=== PATIENT | male | born 1960 | race Native Hawaiian/Other Pacific Islander ===

== ENCOUNTER 2019-04-30 15:05 | Inpatient (IN) | payer OTHER ==
[2019-04-30] MEDS ORDERED: Sodium Chloride 0.9% 1,000 ML IV STA (15:59)
[2019-04-30] MEDS ORDERED: Lactated Ringer's 1,000 ML IV SCH (16:00)
--- NOTE | 2019-04-30 16:08 | ED PDOC ---
HPI: Abdomen Time Seen by Provider: 04/30/19 15:31 Chief Complaint (Nursing): Abdominal Pain Chief Complaint (Provider): Abdominal Pain History Per: Patient History/Exam Limitations: no limitations Onset/Duration Of Symptoms: Days (5) Additional Complaint(s): 58 year old male presents to ED with LUQ pain that radiates through back x2 days. Patient was sent to ED after PMD received abnormal blood work, with unusually high Lipase level. The CT ordered by his PMD was positive for acute pancreatitis. He reports fever, loss of appetite, and diarrhea last week but denies vomiting. PMD: Rafael Moses Past Medical History Reviewed: Historical Data, Nursing Documentation, Vital Signs Vital Signs: Last Vital Signs Temp 98.7 F 04/30/19 15:23 Pulse 101 H 04/30/19 15:23 Resp 18 04/30/19 15:23 BP 113/74 04/30/19 15:23 Pulse Ox 96 04/30/19 15:23 Primary Care Provider: Rafael Moses - Medical History PMH: Denies: Anxiety, Bipolar Disorder, Depression, Diabetes, Hepatitis, HIV, HTN, Personality Disorder, Chronic Kidney Disease, Schizophrenia, Seizures, Sexually Transmitted Disease - Family History Family History: States: Unknown Family Hx - Social History Current smoker - smoking cessation education provided: No Alcohol: None Drugs: Denies - Immunization History Hx Tetanus Toxoid Vaccination: No Hx Influenza Vaccination: No Hx Pneumococcal Vaccination: No - Home Medications Home Medications: Ambulatory Orders Medication Instructions Recorded No Known Home Med 04/30/19 - Allergies Allergies/Adverse Reactions: Allergies Allergy/AdvReac Type Severity Reaction Status Date / Time No Known Allergies Allergy Unverified 04/30/19 15:24 Review of Systems ROS Statement: Except As Marked, All Systems Reviewed And Found Negative Constitutional: Positive for: Other (appetite loss) Gastrointestinal: Positive for: Abdominal Pain (LUQ), Diarrhea. Negative for: Vomiting Physical Exam - Reviewed Nursing Documentation Reviewed: Yes Vital Signs Reviewed: Yes - Physical Exam Appears: Negative for: Uncomfortable (comfortable) Head Exam: Positive for: ATRAUMATIC, NORMAL INSPECTION, NORMOCEPHALIC Skin: Positive for: Normal Color, Warm, Dry Eye Exam: Positive for: EOMI, Normal appearance, PERRL ENT: Positive for: Normal ENT Inspection Neck: Positive for: Normal, Painless ROM, Supple Cardiovascular/Chest: Positive for: Regular Rate, Rhythm, Tachycardia (mild). Negative for: Murmur Respiratory: Positive for: CNT, Normal Breath Sounds Gastrointestinal/Abdominal: Positive for: Normal Exam, Soft. Negative for: Tenderness Back: Positive for: Normal Inspection. Negative for: L CVA Tenderness, R CVA Tenderness, Vertebral Tenderness Extremity: Positive for: Normal ROM. Negative for: Pedal Edema, Deformity Neurological/Psych: Positive for: Awake, Alert, Normal Tone, Oriented (x3). Neg ative for: Motor/Sensory Deficits - Laboratory Results Result Diagrams: 04/30/19 16:15 04/30/19 16:15 - ECG O2 Sat by Pulse Oximetry: 96 (RA) Pulse Ox Interpretation: Normal Medical Decision Making Medical Decision Making: Time: 1555 Initial Impression: abdominal pain Ddx: acute pancreatitis Initial Plan: --Labs (CMP, Lipase) --Bloodwork --IV Fluids --US Gallbladder Scribe Attestation: Documented by Kapil Prater acting as a scribe for Danae Park MD. Provider Scribe Attestation: All medical record entries made by the Scribe were at my direction and personally dictated by me. I have reviewed the chart and agree that the record accurately reflects my personal performance of the history, physical exam, medical decision making, and the department course for this patient. I have also personally directed, reviewed, and agree with the discharge instructions and disposition. Disposition - Clinical Impression Clinical Impression: Acute pancreatitis - Disposition Disposition Time: 15:40 Condition: FAIR
[2019-04-30 16:23] LABS: VENOUS BLOOD GAS BASE EXCESS 2.5 mmol/L (0.0-2.0); VENOUS BLOOD GAS PCO2 45 mmHg (40-60); VENOUS BLOOD GAS PO2 36 mm/Hg (30-55)
[2019-04-30 16:25] LABS: BASO # 0.1 K/uL (0.0-0.2); BASO % 0.4 % (0.0-2.0); HEMOGLOBIN 13.4 g/dL (12.0-18.0); LYMPH # 0.7 K/uL (1.0-4.3); LYMPH % 5.7 % (20.0-40.0); MEAN CELL VOLUME 89.4 fl (80.0-94.0); MEAN CORPUSCULAR HEMOGLOBIN 30.5 pg (27.0-31.0); MEAN CORPUSCULAR HGB CONC 34.1 g/dL (33.0-37.0); MEAN PLATELET VOLUME 8.6 fl (7.2-11.7); MONO # 0.9 K/uL (0.0-0.8); MONO % 7.1 % (0.0-10.0); NEUT # 10.9 K/uL (1.8-7.0); NEUT % 86.8 % (50.0-75.0); PLATELET COUNT 206 K/uL (130-400); RBC 4.39 Mil/uL (4.40-5.90); RED CELL DISTRIBUTION WIDTH 13.2 % (11.5-14.5); WHITE BLOOD COUNT 12.6 K/uL (4.8-10.8)
[2019-04-30 16:42] LABS: ALB/GLOB RATIO 1.2 (1.0-2.1); ALBUMIN 4.1 g/dL (3.5-5.0); BLOOD UREA NITROGEN 9 mg/dl (9-20); CALCIUM 8.6 mg/dL (8.4-10.2); GFR NON-AFRICAN AMERICAN > 60; LIPASE 639 U/L (23-300)
[2019-04-30 16:48] LABS: ALT/SGPT 34 U/L (21-72); AST/SGOT 46 U/L (17-59)
[2019-04-30 18:31] LABS: BANDS 2 % (0-2); LYMPHOCYTE 8 % (20-50); MONOCYTE 7 % (0-10); NEUTROPHIL 83 % (42-75); PLATELET ESTIMATE NORMAL (NORMAL); TOTAL CELLS COUNTED 100
[2019-04-30] MEDS: Lactated Ringer's 1,000 ML IV SCH (19:01)
[2019-05-01 06:08] LABS: HEMOGLOBIN 13.1 g/dL (12.0-18.0); MEAN CELL VOLUME 90.3 fl (80.0-94.0); MEAN CORPUSCULAR HEMOGLOBIN 30.2 pg (27.0-31.0); MEAN CORPUSCULAR HGB CONC 33.5 g/dL (33.0-37.0); RBC 4.33 Mil/uL (4.40-5.90); RED CELL DISTRIBUTION WIDTH 13.6 % (11.5-14.5); WHITE BLOOD COUNT 11.9 K/uL (4.8-10.8)
[2019-05-01 06:17] LABS: ALB/GLOB RATIO 1.1 (1.0-2.1); ALBUMIN 3.8 g/dL (3.5-5.0); ALT/SGPT 31 U/L (21-72); AST/SGOT 29 U/L (17-59); BLOOD UREA NITROGEN 8 mg/dl (9-20); CALCIUM 8.5 mg/dL (8.4-10.2); GFR NON-AFRICAN AMERICAN > 60; LIPASE 500 U/L (23-300)
--- NOTE | 2019-05-01 10:56 | US ---
Date of service: 04/30/2019 HISTORY: LUQ pain pacnreatitis COMPARISON: None. TECHNIQUE: Sonographic evaluation of the right upper quadrant of the abdomen. FINDINGS: LIVER: Measures 18.1 cm in length. Patent portal and hepatic venous systems. Portal venous flow: Hepatopetal. echogenicity of the liver parenchyma. No mass. No intrahepatic bile duct dilatation. GALLBLADDER: Unremarkable. No gallstones. COMMON BILE DUCT: Measures 4.8 mm. No stones. No dilatation. PANCREAS: Obscured by overlying bowel gas. Non diagnostic assessment of the pancreas RIGHT KIDNEY: Measures 5.3 x 11.0 cm in length. Normal echogenicity. No calculus, mass, or hydronephrosis. AORTA: Not visible. IVC: Not visible. OTHER FINDINGS: None . IMPRESSION: Unremarkable liver, gallbladder, common bile duct in right kidney. Remaining abdominal/retroperitoneal structures are not visible. Concordant findings (preliminary report) provided by [employer].
[2019-05-01 12:14] LABS: SQUAMOUS EPITHIAL < 1 /hpf (0-5); URINE BILIRUBIN NEGATIVE (NEGATIVE); URINE BLOOD NEGATIVE (NEGATIVE); URINE CLARITY CLEAR (Clear); URINE COLOR YELLOW (YELLOW); URINE GLUCOSE (UA) NEG (NEGATIVE); URINE LEUKOCYTE ESTERASE NEG Leu/uL (Negative); URINE PROTEIN NEGATIVE (NEGATIVE)
[2019-05-01] MEDS: Lactated Ringer's 1,000 ML IV SCH ×5 (12:15→23:23)
[2019-05-01] MEDS ORDERED: Pantoprazole 40 mg EC Tab PO ONE (20:34)
[2019-05-01] MEDS: Simethicone 80 mg Chewtab PO PRN (20:48)
[2019-05-01 21:58] LABS: BASO % 0.4 % (0.0-2.0); EOS % 0.1 % (0.0-4.0); LYMPH % 11.3 % (20.0-40.0); MEAN CELL VOLUME 90.4 fl (80.0-94.0); MEAN CORPUSCULAR HEMOGLOBIN 30.8 pg (27.0-31.0); MEAN PLATELET VOLUME 8.7 fl (7.2-11.7); MONO # 0.9 K/uL (0.0-0.8); MONO % 9.3 % (0.0-10.0); NEUT # 7.3 K/uL (1.8-7.0); NEUT % 78.9 % (50.0-75.0); RBC 4.21 Mil/uL (4.40-5.90); RED CELL DISTRIBUTION WIDTH 13.2 % (11.5-14.5); WHITE BLOOD COUNT 9.3 K/uL (4.8-10.8)
[2019-05-01 22:45] LABS: VENOUS BLOOD GAS PCO2 40 mmHg (40-60); VENOUS BLOOD GAS PO2 38 mm/Hg (30-55); VENOUS BLOOD PH 7.43 (7.32-7.43)
[2019-05-02] MEDS: metroNIDAZOLE 500mg/100ml NS 100 ML IVPB SCH ×3 (00:43→17:05)
[2019-05-02] MEDS: Lactated Ringer's 1,000 ML IV SCH ×2 (06:07→21:34)
--- NOTE | 2019-05-02 08:37 | RAD ---
Date of service: 05/01/2019 HISTORY: fever COMPARISON: No prior. TECHNIQUE: 1 view obtained. FINDINGS: LUNGS: No active pulmonary disease. PLEURA: No significant pleural effusion identified, no pneumothorax apparent. CARDIOVASCULAR: No aortic atherosclerotic calcification present. Normal cardiac size. No pulmonary vascular congestion. OSSEOUS STRUCTURES: No significant abnormalities. VISUALIZED UPPER ABDOMEN: Normal. OTHER FINDINGS: None. IMPRESSION: No active disease.
[2019-05-02] MEDS: Pantoprazole 40 mg EC Tab PO SCH (10:09)
[2019-05-02 11:58] LABS: HEMOGLOBIN 12.9 g/dL (12.0-18.0); MEAN CELL VOLUME 89.8 fl (80.0-94.0); MEAN CORPUSCULAR HEMOGLOBIN 30.5 pg (27.0-31.0); RBC 4.24 Mil/uL (4.40-5.90); RED CELL DISTRIBUTION WIDTH 13.4 % (11.5-14.5); WHITE BLOOD COUNT 8.8 K/uL (4.8-10.8)
[2019-05-02 12:07] LABS: ALB/GLOB RATIO 1.1 (1.0-2.1); ALBUMIN 3.8 g/dL (3.5-5.0); ALT/SGPT 29 U/L (21-72); AST/SGOT 25 U/L (17-59); BLOOD UREA NITROGEN 8 mg/dl (9-20); CALCIUM 8.6 mg/dL (8.4-10.2); GFR NON-AFRICAN AMERICAN > 60; LIPASE 412 U/L (23-300)
[2019-05-02] MEDS ORDERED: Iohexol 300 100 ML IJ ONE (12:28)
[2019-05-02] MEDS ORDERED: Sodium Chloride 0.9% 50 ML IV ONE (12:28)
--- NOTE | 2019-05-02 13:30 | CT ---
Date of service: 05/02/2019 PROCEDURE: CT Abdomen and Pelvis with contrast HISTORY: pancreatitis, recurrent fever COMPARISON: None. TECHNIQUE: Contrast dose: Radiation dose: Total exam DLP = 908.56 mGy-cm. This CT exam was performed using one or more of the following dose reduction techniques: Automated exposure control, adjustment of the mA and/or kV according to patient size, and/or use of iterative reconstruction technique. FINDINGS: LOWER THORAX: Bibasilar infiltrates. LIVER: Fatty infiltration of the liver. GALLBLADDER AND BILE DUCTS: Unremarkable. PANCREAS: Peripancreatic infiltration and hypertrophy involving predominately the tail in the adjacent soft tissues consistent with acute pancreatitis. SPLEEN: Unremarkable. ADRENALS: Unremarkable. No mass. KIDNEYS AND URETERS: Unremarkable. No hydronephrosis. No solid mass. VASCULATURE: Unremarkable. No aortic aneurysm. No aortic atherosclerotic calcification or mural plaque present. BOWEL: Unremarkable. No obstruction. No gross mural thickening. APPENDIX: Normal appendix. PERITONEUM: Unremarkable. No free fluid. No free air. LYMPH NODES: Unremarkable. No enlarged lymph nodes. BLADDER: Unremarkable. REPRODUCTIVE: Unremarkable. BONES: No acute fracture. OTHER FINDINGS: None. IMPRESSION: Acute pancreatitis predominately involving the tail. Bibasilar infiltrates. Fatty liver.
--- NOTE | 2019-05-02 15:01 | CP.PCM.PN ---
Subjective - Date & Time of Evaluation Date of Evaluation: 05/02/19 Time of Evaluation: 10:00 - Subjective Subjective: patient seen and examined at bedside. Interim events noted complains of neck pain/headache denies cp/sob/fever/chills at this time, however had 102 fever last night available diagnostic data reviewed Review of Systems All systems: reviewed and no additional remarkable complaints except mentioned above Objective Vital Signs Stable - Constitutional Appears: Non-toxic, No Acute Distress Head Exam: NORMAL INSPECTION Eye Exam: Normal appearance Respiratory Exam: NORMAL BREATHING PATTERN Cardiovascular Exam: +S1, +S2 GI & Abdominal Exam: Soft Neurological Exam: Alert, Awake Psychiatric exam: Normal Affect, Normal Mood Skin Exam: Normal Color, Warm Assessment and Plan monitor vitals monitor labs Cont meds Cont tx consultants appreciated input due to recurring fever, will obtain CT abdomen/pelvis for further evaluation rest of plan as ordered Objective - Vital Signs/Intake and Output Vital Signs (last 24 hours): Temp Pulse Resp BP Pulse Ox 99.9 F H 111 H 93 H 102/64 18 L 05/02/19 08:05 05/02/19 08:05 05/02/19 08:05 05/02/19 08:05 05/02/19 08:05 - Medications Medications: Current Medications Acetaminophen (Tylenol 325mg Tab) 650 mg PO Q6 PRN PRN Reason: Headache Last Admin: 05/02/19 08:48 Dose: 650 mg Acetaminophen (Tylenol 325mg Tab) 650 mg PO Q6 PRN PRN Reason: Fever >100.4 F Last Admin: 05/01/19 21:56 Dose: 650 mg Docusate Sodium (Colace) 200 mg PO HS [facility] Last Admin: 05/01/19 22:00 Dose: Not Given Lactated Ringer's (Lactated Ringer's) 1,000 mls @ 180 mls/hr IV .Q5H34M [facility] Last Admin: 05/02/19 06:07 Dose: 180 mls/hr Ceftriaxone Sodium 1 gm/ (Sodium Chloride) 100 mls @ 100 mls/hr IVPB DAILY [facility]; Protocol Last Admin: 05/02/19 10:07 Dose: 100 mls/hr Metronidazole (Flagyl 500mg/100ml Ns) 100 mls @ 100 mls/hr IVPB Q8 [facility]; Protocol Last Admin: 05/02/19 10:07 Dose: 100 mls/hr Ketorolac Tromethamine (Toradol) 30 mg IVP Q6 PRN PRN Reason: Headache Last Admin: 05/02/19 10:15 Dose: 30 mg Morphine Sulfate (Morphine) 2 mg IVP Q6 PRN PRN Reason: Pain, severe (8-10) Ondansetron HCl (Zofran Inj) 4 mg IVP Q6 PRN PRN Reason: Nausea/Vomiting Pantoprazole Sodium (Protonix Ec Tab) 40 mg PO DAILY [facility] Last Admin: 05/02/19 10:09 Dose: 40 mg Simethicone (Mylicon Chew Tab) 80 mg PO Q8 PRN PRN Reason: Flatulence Last Admin: 05/01/19 20:48 Dose: 80 mg - Labs Labs: 05/02/19 11:40 05/02/19 11:40 Assessment and Plan (1) Acute pancreatitis Status: Acute
[2019-05-02] MEDS: Simethicone 80 mg Chewtab PO PRN (15:20)
[2019-05-02] MEDS ORDERED: Pantoprazole 40 mg EC Tab PO ONE (20:32)
[2019-05-03] MEDS: metroNIDAZOLE 500mg/100ml NS 100 ML IVPB SCH ×3 (00:39→16:27)
[2019-05-03] MEDS: Lactated Ringer's 1,000 ML IV SCH ×5 (02:19→22:00)
[2019-05-03 07:40] LABS: HEMOGLOBIN 12.7 g/dL (12.0-18.0); MEAN CELL VOLUME 89.9 fl (80.0-94.0); MEAN CORPUSCULAR HEMOGLOBIN 30.9 pg (27.0-31.0); MEAN CORPUSCULAR HGB CONC 34.4 g/dL (33.0-37.0); RBC 4.1 Mil/uL (4.40-5.90); RED CELL DISTRIBUTION WIDTH 13.2 % (11.5-14.5); WHITE BLOOD COUNT 8.1 K/uL (4.8-10.8)
[2019-05-03 08:01] LABS: ALB/GLOB RATIO 1.1 (1.0-2.1); ALBUMIN 3.7 g/dL (3.5-5.0); ALT/SGPT 23 U/L (21-72); AST/SGOT 22 U/L (17-59); BLOOD UREA NITROGEN 8 mg/dl (9-20); CALCIUM 8.4 mg/dL (8.4-10.2); GFR NON-AFRICAN AMERICAN > 60; LIPASE 418 U/L (23-300)
[2019-05-03] MEDS: Pantoprazole 40 mg EC Tab PO SCH (08:52)
[2019-05-03] MEDS: Simethicone 80 mg Chewtab PO PRN (12:48)
--- NOTE | 2019-05-03 13:03 | CP.PCM.CON ---
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 NKDA Review of Systems - Review of Systems All systems: reviewed and no additional remarkable complaints except - Constitutional Constitutional: As Per HPI - EENT Eyes: absent: As Per HPI, Blind Spots, Blurred Vision, Change in Vision, Decreased Night Vision, Diplopia, Discharge, Dry Eye, Exophthalmos, Floaters, Irritation, Itchy Eyes, Loss of Peripheral Vision, Pain, Photophobia, Requires Corrective Lenses, Sees Flashes, Spots in Vision, Tunnel Vision, Other Visual Disturbances, Loss of Vision, Other Ears: absent: As Per HPI, Decreased Hearing, Ear Discharge, Ear Pain, Tinnitus, Abnormal Hearing, Disequilibrium, Dizziness, Other Nose/Mouth/Throat: absent: As Per HPI, Epistaxis, Nasal Congestion, Nasal Discharge, Nasal Obstruction, Nasal Trauma, Nose Pain, Post Nasal Drip, Sinus Pain, Sinus Pressure, Bleeding Gums, Change in Voice, Dental Pain, Dry Mouth, Dysphagia, Halitosis, Hoarsness, Lip Swelling, Mouth Lesions, Mouth Pain, Odynophagia, Sore Throat, Throat Swelling, Tongue Swelling, Facial Pain, Neck Pain, Neck Mass, Other - Cardiovascular Cardiovascular: absent: As Per HPI, Acrocyanosis, Chest Pain, Chest Pain at Rest, Chest Pain with Activity, Claudication, Diaphoresis, Dyspnea, Dyspnea on Exertion, Edema, Irregular Heart Rhythm, Pain Radiating to Arm/Neck/Jaw, Leg Edema, Leg Ulcers, Lightheadedness, Orthopnea, Palpitations, Paroxysmal Nocturnal Dyspnea, Pedal Edema, Radiating Pain, Rapid Heart Rate, Slow Heart Rate, Syncope, Other - Respiratory Respiratory: absent: As Per HPI, Cough, Dyspnea, Hemoptysis, Dyspnea on E xertion, Wheezing, Snoring, Stridor, Pain on Inspiration, Chest Congestion, Excessive Mucous Production, Change in Mucous Color, Pain with Coughing, Other - Gastrointestinal Gastrointestinal: As Per HPI - Genitourinary Genitourinary: absent: As Per HPI, Change in Urinary Stream, Difficulty Urinating, Dysuria, Flank Pain, Hematuria, Pyuria, Nocturia, Urinary Incontinence, Urinary Frequency, Urinary Hesitance, Urinary Urgency, Voiding Freq/Small Amts, Freq UTI, Hx Renal/Bladder Calculi, Hx /Renal Surgery, Bladder Distension, Other - Musculoskeletal Musculoskeletal: absent: As Per HPI, Abnormal Gait, Arthralgias, Atrophy, Back Pain, Deformity, Joint Swelling, Limited Range of Motion, Loss of Height, Muscle Cramps, Muscle Weakness, Myalgias, Neck Pain, Numbness, Radiating Pain into Limb, Stiffness, Tingling, Other - Integumentary Integumentary: absent: As Per HPI, Acne, Alopecia, Bleeding Lesions, Change in Hair, Change in Nails, Change in Pigmentation, Changing Lesions, Dry Skin, Erythema, Furuncle, Hirsutism, Lesions, New Lesions, Non-Healing Lesions, Photosensitivity, Pruritus, Rash, Skin Pain, Skin Ulcer, Sores, Striae, Swel ling, Unusual Bruising, Wounds, Jaundice, Other - Neurological Neurological: absent: As Per HPI, Abnormal Gait, Abnormal Hearing, Abnormal Movements, Abnormal Speech, Behavioral Changes, Burning Sensations, Confusion, Convulsions, Disequilibrium, Dizziness, Numbness, Focal Weakness, Frequent Falls, Headaches, Lack of Coordination, Loss of Vision, Memory Loss, Paresthesias, Radicular Pain, Restless Legs, Sensory Deficit, Syncope, Tingling, Tremor, Vertigo, Weakness, Other Visual Disturbances, Other - Psychiatric Psychiatric: absent: As Per HPI, Abnormal Sleep Pattern, Anhedonia, Anxiety, Auditory Hallucinations, Behavioral Changes, Change in Appetite, Change in Libido, Confusion, Depression, Difficulty Concentrating, Hallucinations, Homicidal Ideation, Hopelessness, Irritability, Memory Loss, Mood Swings, Panic Attacks, Paranoia, Suicidal Ideation, Visual Hallucinations, Tactile Hallucinations, Other - Endocrine Endocrine: absent: As Per HPI, Change in Body Appearance, Change in Libido, Cold Intolorance, Deepening of Voice, Excessive Sweating, Fatigue, Flushing, Heat Intolorance, Increase in Ring/Shoe/Hat Size, Palpitations, Polydipsia, Polyphagia, Polyuria, Other - Hematologic/Lymphatic Hematologic: absent: As Per HPI, Easy Bleeding, Easy Bruising, Lymphadenopathy, Other Past Patient History - Past Medical History & Family History Past Medical History?: Yes - Past Social History Smoking Status: Never Smoked - CARDIAC Hx Cardiac Disorders: No - PULMONARY Hx Respiratory Disorders: No - NEUROLOGICAL Hx Neurological Disorder: No - HEENT Hx HEENT Problems: No - RENAL Hx Chronic Kidney Disease: No - ENDOCRINE/METABOLIC Hx Endocrine Disorders: No - HEMATOLOGICAL/ONCOLOGICAL Hx Blood Disorders: No Hx Hepatitis B: Yes - INTEGUMENTARY Hx Dermatological Problems: No - MUSCULOSKELETAL/RHEUMATOLOGICAL Hx Musculoskeletal Disorders: No Hx Falls: No - GASTROINTESTINAL Hx Gastrointestinal Disorders: No - GENITOURINARY/GYNECOLOGICAL Hx Genitourinary Disorders: No - PSYCHIATRIC Hx Psychophysiologic Disorder: No Hx Substance Use: No - SURGICAL HISTORY Hx Surgeries: Yes Hx Arthroscopy: Yes (rt. knee) Other/Comment: knee sx. B/l hand sx for capal tunnel. - ANESTHESIA Hx Anesthesia: Yes Hx Anesthesia Reactions: No Hx Malignant Hyperthermia: No Meds Allergies/Adverse Reactions: Allergies Allergy/AdvReac Type Severity Reaction Status Date / Time No Known Allergies Allergy Unverified 04/30/19 15:24 - Medications Medications: Current Medications Acetaminophen (Tylenol 325mg Tab) 650 mg PO Q6 PRN PRN Reason: Headache Last Admin: 05/02/19 17:04 Dose: 650 mg Acetaminophen (Tylenol 325mg Tab) 650 mg PO Q6 PRN PRN Reason: Fever >100.4 F Last Admin: 05/01/19 21:56 Dose: 650 mg Docusate Sodium (Colace) 200 mg PO HS [facility] Last Admin: 05/02/19 21:32 Dose: 200 mg Lactated Ringer's (Lactated Ringer's) 1,000 mls @ 180 mls/hr IV .Q5H34M [facility] Last Admin: 05/03/19 08:51 Dose: 180 mls/hr Ceftriaxone Sodium 1 gm/ (Sodium Chloride) 100 mls @ 100 mls/hr IVPB DAILY [facility]; Protocol Last Admin: 05/03/19 11:07 Dose: 100 mls/hr Metronidazole (Flagyl 500mg/100ml Ns) 100 mls @ 100 mls/hr IVPB Q8 [facility]; Protoc ol Last Admin: 05/03/19 08:51 Dose: 100 mls/hr Ketorolac Tromethamine (Toradol) 30 mg IVP Q6 PRN PRN Reason: Headache Last Admin: 05/02/19 10:15 Dose: 30 mg Morphine Sulfate (Morphine) 2 mg IVP Q6 PRN PRN Reason: Pain, severe (8-10) Ondansetron HCl (Zofran Inj) 4 mg IVP Q6 PRN PRN Reason: Nausea/Vomiting Pantoprazole Sodium (Protonix Ec Tab) 40 mg PO DAILY [facility] Last Admin: 05/03/19 08:52 Dose: 40 mg Simethicone (Mylicon Chew Tab) 80 mg PO Q8 PRN PRN Reason: Flatulence Last Admin: 05/03/19 12:48 Dose: 80 mg Physical Exam - Constitutional Appears: Non-toxic, Chronically Ill - Head Exam Head Exam: ATRAUMATIC, NORMAL INSPECTION, NORMOCEPHALIC - Eye Exam Eye Exam: EOMI, Normal appearance, PERRL Pupil Exam: NORMAL ACCOMODATION, PERRL - ENT Exam ENT Exam: Mucous Membranes Moist, Normal Exam - Neck Exam Neck exam: Positive for: Normal Inspection - Respiratory Exam Respiratory Exam: Clear to Auscultation Bilateral, NORMAL BREATHING PATTERN - Cardiovascular Exam Cardiovascular Exam: REGULAR RHYTHM - GI/Abdominal Exam GI & Abdominal Exam: Diminished Bowel Sounds, Distended, Guarding, Soft. absent: Rebound, Rigid, Tenderness - Rectal Exam Rectal Exam: Deferred - Exam Exam: NORMAL INSPECTION - Extremities Exam Extremities exam: Positive for: normal inspection - Back Exam Back exam: NORMAL INSPECTION - Neurological Exam Neurological exam: Alert, CN II-XII Intact, Normal Gait, Oriented x3, Reflexes Normal - Psychiatric Exam Psychiatric exam: Normal Affect, Normal Mood - Skin Skin Exam: Dry, Intact, Normal Color, Warm Results - Vital Signs Recent Vital Signs: Last Vital Signs Temp 98.8 F 05/03/19 09:00 Pulse 103 H 05/03/19 09:00 Resp 20 05/03/19 09:00 BP 123/79 05/03/19 09:00 Pulse Ox 94 L 05/03/19 09:00 - Labs Result Diagrams: 05/03/19 06:00 05/03/19 06:00 Labs: Laboratory Results - last 24 hr 05/03/19 05/03/19 06:00 06:00 WBC 8.1 RBC 4.10 L Hgb 12.7 Hct 36.9 MCV 89.9 MCH 30.9 MCHC 34.4 RDW 13.2 Plt Count 221 Sodium 136 Potassium 3.8 Chloride 100 Carbon Dioxide 26 Anion Gap 14 BUN 8 L Creatinine 0.9 Est GFR ( Amer) > 60 Est GFR (Non-Af Amer) > 60 Random Glucose 129 H Calcium 8.4 Total Bilirubin 1.3 AST 22 ALT 23 Alkaline Phosphatase 50 Total Protein 7.1 Albumin 3.7 Globulin 3.4 Albumin/Globulin Ratio 1.1 Lipase 418 H Assessment & Plan (1) Acute pancreatitis Status: Acute - Assessment and Plan (Free Text) Assessment: r/o ETOH related consider GI eval / MRCP cont IV antibiotics await cultures
[2019-05-03] MEDS: Apap-Butalbital-Caffeine 325-50-40mg Tab PO PRN (16:27)
[2019-05-04] MEDS: metroNIDAZOLE 500mg/100ml NS 100 ML IVPB SCH ×3 (00:09→16:43)
[2019-05-04] MEDS: Lactated Ringer's 1,000 ML IV SCH ×2 (00:11→04:36)
[2019-05-04] MEDS: Pantoprazole 40 mg EC Tab PO SCH (09:03)
[2019-05-04] MEDS: Simethicone 80 mg Chewtab PO PRN (09:04)
--- NOTE | 2019-05-04 11:52 | CP.PCM.PN ---
Subjective - Date & Time of Evaluation Date of Evaluation: 05/04/19 Time of Evaluation: 08:00 - Subjective Subjective: c/o pain denies ETOH use awke alert mild tenderness + tumor markers sent Objective - Vital Signs/Intake and Output Vital Signs (last 24 hours): Temp Pulse Resp BP Pulse Ox 98.3 F 94 H 20 136/90 96 05/04/19 09:00 05/04/19 09:00 05/04/19 09:00 05/04/19 09:00 05/04/19 09:00 - Medications Medications: Current Medications Acetaminophen (Tylenol 325mg Tab) 650 mg PO Q6 PRN PRN Reason: Headache Last Admin: 05/02/19 17:04 Dose: 650 mg Acetaminophen (Tylenol 325mg Tab) 650 mg PO Q6 PRN PRN Reason: Fever >100.4 F Last Admin: 05/01/19 21:56 Dose: 650 mg Acetaminophen/Butalbital/Caffeine (Fioricet) 1 tab PO Q4 PRN PRN Reason: Headache Last Admin: 05/03/19 16:27 Dose: 1 tab Docusate Sodium (Colace) 200 mg PO HS [facility] Last Admin: 05/03/19 21:59 Dose: 200 mg Lactated Ringer's (Lactated Ringer's) 1,000 mls @ 180 mls/hr IV .Q5H34M [facility] Last Admin: 05/04/19 04:36 Dose: 180 mls/hr Ceftriaxone Sodium 1 gm/ (Sodium Chloride) 100 mls @ 100 mls/hr IVPB DAILY [facility]; Protocol Last Admin: 05/04/19 11:25 Dose: 100 mls/hr Metronidazole (Flagyl 500mg/100ml Ns) 100 mls @ 100 mls/hr IVPB Q8 [facility]; Protocol Last Admin: 05/04/19 09:03 Dose: 100 mls/hr Ketorolac Tromethamine (Toradol) 30 mg IVP Q6 PRN PRN Reason: Headache Last Admin: 05/02/19 10:15 Dose: 30 mg Morphine Sulfate (Morphine) 2 mg IVP Q6 PRN PRN Reason: Pain, severe (8-10) Ondansetron HCl (Zofran Inj) 4 mg IVP Q6 PRN PRN Reason: Nausea/Vomiting Pantoprazole Sodium (Protonix Ec Tab) 40 mg PO DAILY [facility] Last Admin: 05/04/19 09:03 Dose: 40 mg Simethicone (Mylicon Chew Tab) 80 mg PO Q8 PRN PRN Reason: Flatulence Last Admin: 05/04/19 09:04 Dose: 80 mg - Labs Labs: 05/03/19 06:00 05/03/19 06:00 - Constitutional Appears: Non-toxic, No Acute Distress, Chronically Ill - Head Exam Head Exam: ATRAUMATIC, NORMAL INSPECTION, NORMOCEPHALIC - Eye Exam Eye Exam: EOMI, Normal appearance, PERRL Pupil Exam: NORMAL ACCOMODATION, PERRL - ENT Exam ENT Exam: Mucous Membranes Moist, Normal Exam - Neck Exam Neck Exam: Full ROM, Normal Inspection. absent: Lymphadenopathy - Respiratory Exam Respiratory Exam: Clear to Ausculation Bilateral, NORMAL BREATHING PATTERN - Cardiovascular Exam Cardiovascular Exam: REGULAR RHYTHM, +S1, +S2. absent: Murmur - GI/Abdominal Exam GI & Abdominal Exam: Distended, Guarding, Soft, Tenderness, Diminished Bowel Sounds. absent: Rigid, Pulsatile Mass, Rebound - Rectal Exam Rectal Exam: Deferred - Extremities Exam Extremities Exam: Full ROM, Normal Capillary Refill, Normal Inspection. absent: Joint Swelling, Pedal Edema - Back Exam Back Exam: NORMAL INSPECTION - Neurological Exam Neurological Exam: Alert, Awake, CN II-XII Intact, Normal Gait, Oriented x3 - Psychiatric Exam Psychiatric exam: Depressed - Skin Skin Exam: Dry, Intact, Normal Color, Warm Assessment and Plan (1) Acute pancreatitis Status: Acute - Assessment and Plan (Free Text) Assessment: tumor markers sent consider MRCP all cultures neg thus far IV antibiotics renewed
[2019-05-04 12:44] LABS: HEPATITIS B SURFACE AG Negative (NEGATIVE)
[2019-05-04 12:50] LABS: HEPATITIS A IGM NEGATIVE (NEGATIVE); HEPATITIS B CORE AB NEGATIVE (NEGATIVE)
[2019-05-04 13:02] LABS: HEPATITIS C ANTIBODY NEGATIVE (NEGATIVE)
--- NOTE | 2019-05-04 13:12 | CP.PCM.PN ---
Subjective - Date & Time of Evaluation Date of Evaluation: 05/03/19 Time of Evaluation: 10:00 - Subjective Subjective: patient seen and examined at bedside. Interim events noted complains of neck pain/headache, abdomen pain better denies cp/sob/fever/chills at this time available diagnostic data reviewed Review of Systems All systems: reviewed and no additional remarkable complaints except mentioned above Objective Vital Signs Stable - Constitutional Appears: Non-toxic, No Acute Distress Head Exam: NORMAL INSPECTION Eye Exam: Normal appearance Respiratory Exam: NORMAL BREATHING PATTERN Cardiovascular Exam: +S1, +S2 GI & Abdominal Exam: Soft, mild ttp of epigastrum Neurological Exam: Alert, Awake Psychiatric exam: Normal Affect, Normal Mood Skin Exam: Normal Color, Warm Assessment and Plan monitor vitals monitor labs Cont meds Cont tx consultants appreciated input ct abdomen with acute pancreatitis GI consulted fiorcet for headache rest of plan as ordered Assessment and Plan (1) Acute pancreatitis Status: Acute
--- NOTE | 2019-05-04 13:13 | CP.PCM.PN ---
Subjective - Date & Time of Evaluation Date of Evaluation: 05/04/19 Time of Evaluation: 10:00 - Subjective Subjective: patient seen and examined at bedside. Interim events noted neck pain/headache resolved, abdomen pain better denies cp/sob/fever/chills at this time available diagnostic data reviewed Review of Systems All systems: reviewed and no additional remarkable complaints except mentioned above Objective Vital Signs Stable - Constitutional Appears: Non-toxic, No Acute Distress Head Exam: NORMAL INSPECTION Eye Exam: Normal appearance Respiratory Exam: NORMAL BREATHING PATTERN Cardiovascular Exam: +S1, +S2 GI & Abdominal Exam: Soft, mild ttp of epigastrum Neurological Exam: Alert, Awake Psychiatric exam: Normal Affect, Normal Mood Skin Exam: Normal Color, Warm Assessment and Plan monitor vitals monitor labs Cont meds Cont tx consultants appreciated input GI eval pending rest of plan as ordered Objective - Vital Signs/Intake and Output Vital Signs (last 24 hours): Temp Pulse Resp BP Pulse Ox 98.3 F 94 H 20 136/90 96 05/04/19 09:00 05/04/19 09:00 05/04/19 09:00 05/04/19 09:00 05/04/19 09:00 - Medications Medications: Current Medications Acetaminophen (Tylenol 325mg Tab) 650 mg PO Q6 PRN PRN Reason: Headache Last Admin: 05/02/19 17:04 Dose: 650 mg Acetaminophen (Tylenol 325mg Tab) 650 mg PO Q6 PRN PRN Reason: Fever >100.4 F Last Admin: 05/01/19 21:56 Dose: 650 mg Acetaminophen/Butalbital/Caffeine (Fioricet) 1 tab PO Q4 PRN PRN Reason: Headache Last Admin: 05/03/19 16:27 Dose: 1 tab Docusate Sodium (Colace) 200 mg PO HS CLAUDETTE Last Admin: 05/03/19 21:59 Dose: 200 mg Lactated Ringer's (Lactated Ringer's) 1,000 mls @ 180 mls/hr IV .Q5H34M CLAUDETTE Last Admin: 05/04/19 04:36 Dose: 180 mls/hr Ceftriaxone Sodium 1 gm/ (Sodium Chloride) 100 mls @ 100 mls/hr IVPB DAILY CLAUDETTE; Protocol Last Admin: 05/04/19 11:25 Dose: 100 mls/hr Metronidazole (Flagyl 500mg/100ml Ns) 100 mls @ 100 mls/hr IVPB Q8 CLAUDETTE; Protocol Last Admin: 05/04/19 09:03 Dose: 100 mls/hr Ketorolac Tromethamine (Toradol) 30 mg IVP Q6 PRN PRN Reason: Headache Last Admin: 05/02/19 10:15 Dose: 30 mg Morphine Sulfate (Morphine) 2 mg IVP Q6 PRN PRN Reason: Pain, severe (8-10) Ondansetron HCl (Zofran Inj) 4 mg IVP Q6 PRN PRN Reason: Nausea/Vomiting Pantoprazole Sodium (Protonix Ec Tab) 40 mg PO DAILY CLAUDETTE Last Admin: 05/04/19 09:03 Dose: 40 mg Simethicone (Mylicon Chew Tab) 80 mg PO Q8 PRN PRN Reason: Flatulence Last Admin: 05/04/19 09:04 Dose: 80 mg - Labs Labs: 05/03/19 06:00 05/03/19 06:00 Assessment and Plan (1) Acute pancreatitis Status: Acute
[2019-05-04] MEDS: Apap-Butalbital-Caffeine 325-50-40mg Tab PO PRN (15:29)
[2019-05-05] MEDS: Lactated Ringer's 1,000 ML IV SCH (00:09)
[2019-05-05] MEDS: metroNIDAZOLE 500mg/100ml NS 100 ML IVPB SCH ×2 (00:09→09:55)
--- NOTE | 2019-05-05 02:55 | CON ---
DATE: 05/04/2019 REFERRING PHYSICIANS: Rafael Moses MD and Jr Solitario MD REASON FOR CONSULTATION: Abdominal pain. HISTORY OF PRESENT ILLNESS: This is a very pleasant 58-year-old man who comes in gastroenteritis with some nausea and diarrhea, also some abdomina pain that came back afterwards for the past couple of days. He feels better, tolerating diet now, in no apparent distress. PAST MEDICAL HISTORY: As above. PAST SURGICAL HISTORY: As above. MEDICATIONS: Have been reviewed. REVIEW OF SYSTEMS: All other systems have been reviewed and negative apart from the HPI. PHYSICAL EXAMINATION: VITAL SIGNS: Here in the hospital are grossly unremarkable. GENERAL: A pleasant middle-aged man, lying in bed comfortable, in no apparent distress. HEENT: Head: Normocephalic and atraumatic. Eyes: Pupils are equal and reactive to light bilaterally. No conjunctival pallor or icterus. NECK: Supple. Normal range of motion. No lymph nodes appreciated. LUNGS: Coarse breath sounds bilaterally. HEART: S1 and S2. Regular rate and rhythm. No murmurs appreciated. ABDOMEN: Soft and nontender. Bowel sounds present. No rebound. No guarding. RECTAL: Deferred. EXTREMITIES: Pulse present bilaterally. SKIN: Warm, dry and intact. NEUROLOGICAL: Alert and oriented x3. LABORATORY DATA: All labs and radiology have been reviewed. WBC is 8.1, hemoglobin is 12.7. Lipase is roughly 418. CAT scan shows pancreatitis in the tail. ASSESSMENT AND PLAN: This is a 58-year-old man with pancreatitis, likely secondary to either viral or possibly just secondary to adenitis may be. From a gastroenterology standpoint, advance diet as tolerated. Follow up with me in the office. Thank yo for the consult. Henry Salinas MD/ PhD cc: MD Rafael Stovall MD
--- NOTE | 2019-05-05 07:37 | CP.PCM.HP ---
History of Present Illness - History of Present Illness History of Present Illness: This is a 58 y/o male admitted for persistent abdominal pain and a dx of pancreatitis. He was initially seen at [facility] for abdominal pain where a CT scan showed changes referrable to pancreatitis and an elevated lipase of more than 2000. He was sent home and was seen in my office yesterday for persistent abdominal pain hence advised to come to ER for re evaluation. At the Er he was noted to have elevated WBC and low grade fever. Medical Hx No significant medical hx. Present on Admission - Present on Admission Any Indicators Present on Admission: No History of DVT/PE: No History of Uncontrolled Diabetes: No Urinary Catheter: No Decubitus Ulcer Present: No Review of Systems - Gastrointestinal Gastrointestinal: Abdominal Pain Past Patient History - Past Medical History & Family History Past Medical History?: Yes - Past Social History Smoking Status: Never Smoked - CARDIAC Hx Cardiac Disorders: No - PULMONARY Hx Respiratory Disorders: No - NEUROLOGICAL Hx Neurological Disorder: No - HEENT Hx HEENT Problems: No - RENAL Hx Chronic Kidney Disease: No - ENDOCRINE/METABOLIC Hx Endocrine Disorders: No - HEMATOLOGICAL/ONCOLOGICAL Hx Blood Disorders: No Hx Hepatitis B: Yes - INTEGUMENTARY Hx Dermatological Problems: No - MUSCULOSKELETAL/RHEUMATOLOGICAL Hx Musculoskeletal Disorders: No Hx Falls: No - GASTROINTESTINAL Hx Gastrointestinal Disorders: No - GENITOURINARY/GYNECOLOGICAL Hx Genitourinary Disorders: No - PSYCHIATRIC Hx Psychophysiologic Disorder: No Hx Substance Use: No - SURGICAL HISTORY Hx Surgeries: Yes Hx Arthroscopy: Yes (rt. knee) Other/Comment: knee sx. B/l hand sx for capal tunnel. - ANESTHESIA Hx Anesthesia: Yes Hx Anesthesia Reactions: No Hx Malignant Hyperthermia: No Meds Allergies/Adverse Reactions: Allergies Allergy/AdvReac Type Severity Reaction Status Date / Time No Known Allergies Allergy Unverified 04/30/19 15:24 Physical Exam - Head Exam Head Exam: NORMAL INSPECTION - Eye Exam Eye Exam: Normal appearance - ENT Exam ENT Exam: Mucous Membranes Moist - Respiratory Exam Respiratory Exam: Chest Wall Tenderness, Clear to Auscultation Bilateral, NORMAL BREATHING PATTERN - Cardiovascular Exam Cardiovascular Exam: REGULAR RHYTHM - GI/Abdominal Exam GI & Abdominal Exam: Diminished Bowel Sounds, Distended, Tenderness Additional comments: tender epigastric and RUQ area Results - Vital Signs Recent Vital Signs: Last Vital Signs Temp 98 F 05/05/19 00:13 Pulse 93 H 05/05/19 00:13 Resp 18 05/05/19 00:13 BP 114/79 05/05/19 00:13 Pulse Ox 98 05/05/19 00:13 - Labs Result Diagrams: 05/03/19 06:00 05/03/19 06:00 Labs: Laboratory Results - last 24 hr 05/04/19 05/04/19 05:20 05:20 Hepatitis A IgM Ab Negative Hep Bs Antigen Negative Hep B Core IgM Ab Negative Hepatitis C Antibody Negative HIV 1&2 Antibody Screen Negative Assessment & Plan (1) Acute pancreatitis Status: Acute (2) Fever Status: Acute (3) Leukocytosis Status: Acute - Assessment and Plan (Free Text) Plan: Keep NPO Hydrate \Pain meds do blood C and S urine C and S and CXR start IV antibiotics ID eval.
[2019-05-05 08:04] VITALS: RESP 20
[2019-05-05] MEDS: Pantoprazole 40 mg EC Tab PO SCH (09:56)
[2019-05-05 16:03] VITALS: BP 116/76; PULSE 79; TEMP 98.8; O2SAT 96
[2019-05-05] MEDS ORDERED: Gadodiamide 287 MG/ML VIAL (15ML) IV ONE (16:22)
[2019-05-05] MEDS ORDERED: Sodium Chloride 0.9% 100 ML ONE (16:22)
--- NOTE | 2019-05-06 10:57 | MRI ---
Date of service: 05/05/2019 PROCEDURE: MRI Abdomen with and without contrast HISTORY: Pancreatitis COMPARISON: CT scan of the abdomen pelvis dated 05/02/2019. TECHNIQUE: Multisequence, multiplanar MR images of the abdomen with and without gadolinium contrast enhancement. 16 mL Omniscan was administered intravenously. FINDINGS: LIVER: Hepatic steatosis. GALLBLADDER: Unremarkable. SPLEEN: Unremarkable. PANCREAS: Prominence of the tail with peripancreatic stranding. No lesion. No ductal dilatation. ADRENALS: Unremarkable. KIDNEYS: Tiny subcentimeter cysts bilaterally. AORTA: No aneurysm. ASCITES: None. PERITONEUM: Unremarkable. LYMPH NODES: Unremarkable. OTHER FINDINGS: Basilar subsegmental atelectasis. IMPRESSION: Acute pancreatitis predominantly involving the tail. No necrosis, hemorrhage or pseudocyst. No pancreatic ductal dilatation. Hepatic steatosis.
--- NOTE | 2019-05-06 23:26 | CP.PCM.DIS ---
Provider - Provider Date of Admission: 04/30/19 15:32 Attending physician: Rafael Moses MD Consults: 05/01/19 21:18 Infectious Disease Consult Routine Comment: Consulting Provider: Lei Smith Consulting Physician: Lie Smith Reason for Consult: fever, elevated WBC 05/03/19 14:06 Gastroenterology Consult Routine Comment: Consulting Provider: Henry Salinas Consulting Physician: Henry Salinas Reason for Consult: pancreatitis Time Spent in preparation of Discharge (in minutes): 30 Diagnosis - Discharge Diagnosis (1) Acute pancreatitis Status: Acute (2) Fever Status: Acute (3) Leukocytosis Status: Acute Hospital Course - Lab Results Lab Results: Micro Results 05/01/19 21:27 Blood-Venous Blood Culture - Final NO GROWTH AFTER 5 DAYS 05/01/19 21:27 Blood-Venous Gram Stain - Final TEST NOT PERFORMED 05/01/19 09:50 Blood Blood Culture - Final NO GROWTH AFTER 5 DAYS 05/01/19 09:50 Blood Gram Stain - Final TEST NOT PERFORMED 05/01/19 12:04 Urine Random Urine Culture - Final No Growth (<1,000 CFU/ML) Most Recent Lab Values WBC 8.1 K/uL (4.8-10.8) 05/03/19 06:00 RBC 4.10 Mil/uL (4.40-5.90) L 05/03/19 06:00 Hgb 12.7 g/dL (12.0-18.0) 05/03/19 06:00 Hct 36.9 % (35.0-51.0) 05/03/19 06:00 MCV 89.9 fl (80.0-94.0) 05/03/19 06:00 MCH 30.9 pg (27.0-31.0) 05/03/19 06:00 MCHC 34.4 g/dL (33.0-37.0) 05/03/19 06:00 RDW 13.2 % (11.5-14.5) 05/03/19 06:00 Plt Count 221 K/uL (130-400) 05/03/19 06:00 MPV 8.7 fl (7.2-11.7) 05/01/19 21:27 Neut % (Auto) 78.9 % (50.0-75.0) H 05/01/19 21:27 Lymph % (Auto) 11.3 % (20.0-40.0) L 05/01/19 21: [place] % (Auto) 9.3 % (0.0-10.0) 05/01/19 21: Eos % (Auto) 0.1 % (0.0-4.0) 05/01/19 21: Baso % (Auto) 0.4 % (0.0-2.0) 05/01/19 21: Neut # (Auto) 7.3 K/uL (1.8-7.0) H 05/01/19 21: Lymph # (Auto) 1.0 K/uL (1.0-4.3) 05/01/19 21: [place] # (Auto) 0.9 K/uL (0.0-0.8) H 05/01/19 21: Eos # (Auto) 0.0 K/uL (0.0-0.7) 05/01/19 21: Baso # (Auto) 0.0 K/uL (0.0-0.2) 05/01/19 21: Neutrophils % (Manual) 83 % (42-75) H 04/30/19 16:15 Band Neutrophils % 2 % (0-2) 04/30/19 16:15 Lymphocytes % (Manual) 8 % (20-50) L 04/30/19 16:15 Monocytes % (Manual) 7 % (0-10) 04/30/19 16:15 Platelet Estimate Normal (NORMAL) 04/30/19 16:15 RBC Morphology Normal (NORMAL) 04/30/19 16:15 pO2 38 mm/Hg (30-55) 05/01/19 22:39 VBG pH 7.43 (7.32-7.43) 05/01/19 22:39 VBG pCO2 40 mmHg (40-60) 05/01/19 22:39 VBG HCO3 25.9 mmol/L 05/01/19 22:39 VBG Total CO2 27.7 mmol/L (22-28) 05/01/19 22:39 VBG O2 Sat (Calc) 78.7 % (40-65) H 05/01/19 22:39 VBG Base Excess 2.0 mmol/L (0.0-2.0) 05/01/19 22:39 VBG Potassium 3.8 mmol/L (3.6-5.2) 05/01/19 22:39 Sodium 135.0 mmol/L (132-148) 05/01/19 22:39 Chloride 101.0 mmol/L (98-107) 05/01/19 22:39 Glucose 138 mg/dL (75-110) H 05/01/19 22:39 Lactate 1.2 mmol/L (0.7-2.1) 05/01/19 22:39 FiO2 21.0 % 05/01/19 22:39 Sodium 136 mmol/l (132-148) 05/03/19 06:00 Potassium 3.8 MMOL/L (3.6-5.0) 05/03/19 06:00 Chloride 100 mmol/L (98-107) 05/03/19 06:00 Carbon Dioxide 26 mmol/L (22-30) 05/03/19 06:00 Anion Gap 14 (10-20) 05/03/19 06:00 BUN 8 mg/dl (9-20) L 05/03/19 06:00 Creatinine 0.9 mg/dl (0.8-1.5) 05/03/19 06:00 Est GFR ( Amer) > 60 05/03/19 06:00 Est GFR (Non-Af Amer) > 60 05/03/19 06:00 Random Glucose 129 mg/dL (75-110) H 05/03/19 06:00 Calcium 8.4 mg/dL (8.4-10.2) 05/03/19 06:00 Total Bilirubin 1.3 mg/dl (0.2-1.3) 05/03/19 06:00 AST 22 U/L (17-59) 05/03/19 06:00 ALT 23 U/L (21-72) 05/03/19 06:00 Alkaline Phosphatase 50 U/L (38-126) 05/03/19 06:00 Total Protein 7.1 G/DL (6.3-8.2) 05/03/19 06:00 Albumin 3.7 g/dL (3.5-5.0) 05/03/19 06:00 Globulin 3.4 gm/dL (2.2-3.9) 05/03/19 06:00 Albumin/Globulin Ratio 1.1 (1.0-2.1) 05/03/19 06:00 Lipase 418 U/L (23-300) H 05/03/19 06:00 CA 19-9 Antigen 10.0 U/mL (0-37) 05/05/19 13:10 Procalcitonin 0.76 NG/ML (0.19-0.49) H 05/03/19 06:00 Venous Blood Potassium 3.8 mmol/L (3.6-5.2) 05/01/19 22:39 Urine Color Yellow (YELLOW) 05/01/19 12:04 Urine Clarity Clear (Clear) 05/01/19 12:04 Urine pH 7.0 (5.0-8.0) 05/01/19 12:04 Ur Specific [place] 1.010 (1.003-1.030) 05/01/19 12:04 Urine Protein Negative mg/dL (NEGATIVE) 05/01/19 12:04 Urine Glucose (UA) Neg mg/dL (NEGATIVE) 05/01/19 12:04 Urine Ketones 20 mg/dL (NEGATIVE) 05/01/19 12:04 Urine Blood Negative (NEGATIVE) 05/01/19 12:04 Urine Nitrate Negative (NEGATIVE) 05/01/19 12:04 Urine Bilirubin Negative (NEGATIVE) 05/01/19 12:04 Urine Urobilinogen 2.0 mg/dL (0.2-1.0) 05/01/19 12:04 Ur Leukocyte Esterase Neg [place]/uL (Negative) 05/01/19 12:04 Urine RBC (Auto) 1 /hpf (0-3) 05/01/19 12:04 Urine Microscopic WBC < 1 /hpf (0-5) 05/01/19 12:04 Ur Squamous Epith Cells < 1 /hpf (0-5) 05/01/19 12:04 Stool Occult Blood Negative (NEGATIVE) 05/05/19 11:22 EBV Capsid Ag IgG Ab <18.00 U/mL 05/04/19 05:20 EBV Capsid Ag IgM Ab <36.00 U/mL 05/04/19 05:20 EBV Nuclear Antigen Ab >600.00 U/mL H 05/04/19 05:20 EBV Interpretation See note 05/04/19 05:20 Hepatitis A IgM Ab Negative (NEGATIVE) 05/04/19 05:20 Hep Bs Antigen Negative (NEGATIVE) 05/04/19 05:20 Hep B Core IgM Ab Negative (NEGATIVE) 05/04/19 05:20 Hepatitis C Antibody Negative (NEGATIVE) 05/04/19 05:20 HIV 1&2 Antibody Screen Negative (NEGATIVE) 05/04/19 05:20 - Hospital Course Hospital Course: This is a 58 y/o male admitted for persistent abdominal pain for the past few days and noted to have pancreatitis. He was initially evaluated at [facility] where CT scan showed evidence of pancreatitis and elevated lipase. Patient was sent home and was advised to go back for hospitalization. He was started on IV hydration and antibiotics due to elevated WBC and fever. Dr Smith was called for consult. He felt better and CBC was monitored. All C and S were all negative. He was sent home in stable condition and advised to follow up in 1 week. Discharge Exam - Head Exam Head Exam: NORMAL INSPECTION - Eye Exam Eye Exam: Normal appearance - Respiratory Exam Respiratory Exam: Clear to PA & Lateral - Cardiovascular Exam Cardiovascular Exam: REGULAR RHYTHM - GI/Abdominal Exam GI & Abdominal Exam: Normal Bowel Sounds - Neurological Exam Neurological exam: CN II-XII Intact - Psychiatric Exam Psychiatric exam: Normal Mood Discharge Plan - Follow Up Plan Condition: FAIR Disposition: HOME/ ROUTINE Instructions: Pancreatitis (DC), [place] Diet Additional Instructions: follow up with primary MD 1 week Referrals: Braden Reyes MD [Family Provider] - Henry Salinas MD, PhD [Staff Provider] - Lei Smith MD [Staff Provider] -
== END 2019-05-05 18:13 | disposition home or self-care (01) | DRG 440 ==
LOC: H.ER 15:05 → H.ERHOLD 15:32 → H.MEDSURG1 17:09
PROVIDERS: ADMIT Family Medicine; ATTEND Family Medicine
DX: K85.90 Acute pancreatitis without necrosis or infection, unspecified (principal); R51 Headache; F32.9 Major depressive disorder, single episode, unspecified